=== PATIENT | female | born 1955 | race Caucasian/White ===

== ENCOUNTER 2017-04-12 15:37 | Emergency (ER) | END 2017-04-12 19:04 | disposition home or self-care (01) ==

== ENCOUNTER 2017-04-16 17:14 | Emergency (ER) | END 2017-04-16 22:22 | disposition left against medical advice (07) ==

== ENCOUNTER 2017-06-01 20:41 | Emergency (ER) | END 2017-06-02 01:10 | disposition home or self-care (01) ==